=== PATIENT | male | born 1975 | race Caucasian/White ===

== ENCOUNTER 2017-11-28 10:37 | Outpatient (CLI) | payer OTHER ==
[~2017-11-28] VITALS: Ht 155 cm; Wt 114.5 kg
[2017-11-28 11:03] LABS: HEMATOCRIT 43.4 % (42.0-52.0); HEMOGLOBIN 14.5 g/dl (13.5-18.0); MEAN CELL VOLUME 94 fl (80.0-100.0); MEAN CORPUSCULAR HEMOGLOBIN 32 pg (27.0-31.0); MEAN CORPUSCULAR HGB CONC 33 g/dl (33.0-37.0); MEAN PLATELET VOLUME 9.4 fl (7.4-10.4); PLATELET COUNT 289 K/mm3 (130-400); REDCELL DISTRIBUTION WIDTH-CV 12.4 % (11.5-14.5)
[2017-11-28 11:08] VITALS: BP 121/74; PULSE 61
[2017-11-28 11:09] VITALS: BP 121/74; PULSE 61; TEMP 97
[2017-11-28 11:11] LABS: PROTHROMBIN TIME 11.4 SECONDS (9.7-12.8)
[2017-11-28] MEDS ORDERED: LOPRESSOR 550 MG/TAB PO (11:13)
[2017-11-28] MEDS ORDERED: CELEXA40 MG PO (11:14)
[2017-11-28] MEDS ORDERED: BUSPAR10 MG PO (11:14)
[2017-11-28] MEDS ORDERED: ASPIRIN 32325 MG/TAB PO (11:15)
[2017-11-28] MEDS ORDERED: NATURAL POTASS595 MG PO (11:17)
[2017-11-28 13:10] VITALS: BP 123/70; PULSE 52
== END 2017-11-28 13:16 | disposition home or self-care (01) ==
LOC: COL.CAR 10:37
PROVIDERS: Internal Medicine Interventional Cardiology
DX: R00.2 Palpitations (principal); F41.8 Other specified anxiety disorders; I48.0 Paroxysmal atrial fibrillation; F17.210 Nicotine dependence, cigarettes, uncomplicated; Z79.82 Long term (current) use of aspirin; Z83.3 Family history of diabetes mellitus; Z82.49 Family history of ischemic heart disease and other diseases of the circulatory system; Z80.9 Family history of malignant neoplasm, unspecified

== ENCOUNTER 2020-03-13 12:01 | Day surgery (SDC) | payer BC ==
[~2020-03-13] VITALS: Ht 180.3 cm; Wt 113.4 kg
[~2020-03-13 12:01] MED LIST: ASPIRIN 32325 MG/TAB PO; BUSPAR10 MG PO; CELEXA40 MG PO; LOPRESSOR 550 MG/TAB PO; NATURAL POTASS595 MG PO
[2020-03-13] MEDS ORDERED: NORCO 325 MG-51 TAB PO (12:43)
[2020-03-13] MEDS ORDERED: MOTRIN 600600 MG/TAB PO (12:43)
[2020-03-13 12:51] VITALS: BP 122/73; PULSE 55; TEMP 98.5
[2020-03-13] MEDS ORDERED: TAMBOCOR150 MG PO (13:14)
[2020-03-13 15:23] VITALS: BP 132/66; PULSE 60
--- NOTE | 2020-03-13 15:23 | NUR ---
PATIENT TRANSPORTED TO BAY 2 ACCOMPANIED BY OR STAFF. PATIENT AWAKE AND TALKING WITH STAFF. MONITORS REAPPLIED. PATIENT ON ROOM AIR. VERBAL REPORT RECEIVED.
[2020-03-13 15:30] VITALS: BP 120/83; PULSE 59; TEMP 97.4
--- NOTE | 2020-03-13 15:40 | NUR ---
VSS ON ROOM AIR. PATIENT VIDEO TALKING ON PHONE WITH FAMILY. PATIENT STATES ABD DISCOMFORT. RATES DISCOMFORT 3/10, STATES MORE SORE. PATIENT GIVEN SPRITE AND MUFFIN. EATING AND DRINKING WITHOUT PROBLEMS.
[2020-03-13 15:45] VITALS: BP 125/51; PULSE 55
--- NOTE | 2020-03-13 15:50 | NUR ---
VSS ON ROOM AIR. PATIENT GIVEN NORCO 1 TAB ORDERED FOR DISCOMFORT. PATIENT VIDEO TALKING ON PHONE WITH FAMILY. PATIENT DENIES NAUSEA.
[2020-03-13 16:00] VITALS: BP 110/61; PULSE 51
--- NOTE | 2020-03-13 16:05 | NUR ---
VSS ON ROOM AIR. PATIENT DENIES NAUSEA. PATIENT STATES CONTINUED SORE. PATIENT STATES SHE IS READY TO GO HOME AND FAMILY IS ON THEIR WAY HERE. 1610 IV SITE REMOVED WITH CATHETER TIP INTACT. PRESSURE AND BANDAGE APPLIED. 1615 DISCHARGE INSTRUCTIONS GIVEN VERBAL AND DISCHARGE PACKET PROVIDED WITH FOLLOWUP APPOINTMENT GIVEN. [facility]. QUESTIONS ANSWERED AND PATIENT VOICED UNDERSTANDING. PATIENT CHANGES INTO STREET CLOTHES. 1626 PATIENT DICHARGED PER WHEEL CHAIR ACCOMPANIED BY AMB RN TO PRIVATE VECHILE DRIVEN BY FAMILY MEMBER.
== END 2020-03-13 16:26 | disposition home or self-care (01) ==
LOC: SDCO 12:01 → EDSEX 14:00 → SDCO 16:26
DX: K42.9 Umbilical hernia without obstruction or gangrene (principal); Z79.82 Long term (current) use of aspirin; Z90.49 Acquired absence of other specified parts of digestive tract; I48.91 Unspecified atrial fibrillation; F32.9 Major depressive disorder, single episode, unspecified; F41.9 Anxiety disorder, unspecified; F17.210 Nicotine dependence, cigarettes, uncomplicated; E66.9 Obesity, unspecified; I10 Essential (primary) hypertension
CPT/HCPCS: C1781; J0690; J1100; J1885; J2704; J3010; J7120

== ENCOUNTER 2023-01-28 13:21 | Inpatient (IN) | payer OTHER ==
[~2023-01-28] VITALS: Ht 152.4 cm; Wt 108.4 kg
[~2023-01-28 13:21] MED LIST changes: +MOTRIN 600600 MG/TAB PO; +NORCO 325 MG-51 TAB PO; +TAMBOCOR150 MG PO
--- NOTE | 2023-01-28 13:45 | NUR ---
1200-ROSIO BROWN, FROM [facility] REQUESTING TRANSFER FOR PATIENT WITH DIVERTICULITIS WITH MICROPERF BUT NO ABCESS. CALL TRANSFERRED TO DR. JAMES WHO STATED HE WILL CONSULT ON PATIENT BUT WOULD LIKE HOSPITALIST TO ADMIT D/T PATIENT HX OF AFIB. CALL THEN TRANSFERRED TO DR. OLMEDO WHO ACCEPTS PATIENT FOR ADMISSION FOR INPATIENT STATUS 1230-[facility] NOTIFIED OF BED AND STATED THAT PATIENT WILL COME VIA EMS
[2023-01-28 14:00] VITALS: BP_SYST 123
[2023-01-28 15:43] VITALS: BP 123/66; PULSE 90; TEMP 98.9
[2023-01-28] MEDS ORDERED: COLACE 100100 MG/CAP PO (15:45)
[2023-01-28] MEDS ORDERED: NATURAL POTASS595 MG PO (15:46)
[2023-01-28 16:12] VITALS: BP_SYST 123
--- NOTE | 2023-01-28 16:29 | NUR ---
Patient admitted to room 328. Report from [facility]. Med list updated with medication bottles patient brought from home. Her daughter at her side. Doctors to see her, they are made aware her her arrival
--- NOTE | 2023-01-28 18:26 | NUR ---
Patient attempted clear liquids and had nausea & increased pain. Zofran & morphine has ordered. Encouraged her to take it very slow with intake. Medications relieved discomfort. IVF as ordered and antibioitcs. Her supportive daughter at bedside. Will report off to nightnurse
[2023-01-28 19:30] VITALS: BP_SYST 92
--- NOTE | 2023-01-28 19:30 | NUR ---
PT HAVING ABD PAIN. VERY ANXIOUS. SEE MAR FOR MS AND BUSPAR GIVEN.
[2023-01-28 20:00] VITALS: BP 128/58; PULSE 64; TEMP 98.9
[2023-01-29] VITALS (13 sets, daily range): BP systolic 92–133; BP diastolic 58–73; PULSE 51–72; TEMP 97.3–99.3
--- NOTE | 2023-01-29 00:40 | NUR ---
PT UP TO BR W/ ASSIST. VOIDED W/O DIFFICULTY. C/O COOK/ NAUSEA. BACK TO BED. SEE VS. ZOFRAN GIVEN.
--- NOTE | 2023-01-29 00:41 | NUR ---
FOUND A VAPE IN BED WITH PT. RELATED NOT ALLOWED. GIVEN TO PT'S DAUGHTER.
--- NOTE | 2023-01-29 00:42 | NUR ---
PT RESTING NOW. NO DISTRESS.
--- NOTE | 2023-01-29 01:06 | NUR ---
NAUSEA IMPROVED. TOOK TYLENOL FOR HEAD ACHE
[2023-01-29 07:17] LABS: BASO % 0.4 % (0.0-2.0); EOS # 0.2 K/mm3 (0.0-0.7); EOS % 1.5 % (0.0-4.0); GRAN # 7.3 K/mm3 (1.4-6.5); HEMOGLOBIN 10.6 g/dl (12.5-16.0); LYMPH # 1.7 K/mm3 (1.2-3.4); LYMPH % 17.4 % (20.0-51.0); MEAN CELL VOLUME 96 fl (80.0-100.0); MEAN CORPUSCULAR HEMOGLOBIN 32 pg (27-31); MEAN CORPUSCULAR HGB CONC 34 g/dl (33.0-37.0); MEAN PLATELET VOLUME 9.9 fl (7.4-10.4); MONO # 0.7 K/mm3 (0.1-0.6); MONO % 7.2 % (1.7-9.3); PLATELET COUNT 190 K/mm3 (130-400); RED BLOOD COUNT 3.28 M/mm3 (4.10-5.30); REDCELL DISTRIBUTION WIDTH-CV 12.9 % (11.5-14.5)
[2023-01-29 07:21] LABS: HEMATOCRIT 31.4 % (37.0-47.0)
[2023-01-29 07:39] LABS: ALBUMIN 2.9 gm/dL (3.5-5.0); BILIRUBIN,TOTAL 0.8 mg/dL (0.2-1.2); CALCIUM 8.3 mg/dL (8.4-10.2); CREATININE, serum 0.81 mg/dL (0.57-1.11); MAGNESIUM 1.8 mg/dL (1.6-2.6); POTASSIUM 3.6 mmol/L (3.5-4.5)
--- NOTE | 2023-01-29 09:28 | NUR ---
PT SITTING IN CHAIR, ALERT AND ORIENTEDX4. PT RATED PAIN 8/10 THIS BEFORE GIVING MORPHINE AND 4/10 AFTER THE MORPHINE IN THE ABDOMEN. PT ALSO COMPLAINED OF HEADACHE. THIS NURSE GAVE HER TYLENOL. ASSESSED AND GAVE MORNING MEDS. CALL LIGHT WITHIN REACH.
--- NOTE | 2023-01-29 13:32 | NUR ---
SW met with patient to complete intake; Patient reports that she resides in [place] and her PCP is Dr Murillo and pharmacy of choice is also located in [place] called [facility]. Patient MARCELO is daughter Aldo Han [phone]. Currently no DPOA. Patient also confirmed that she currently does not utilize any DME's and independent with ADL's. Patient is excepting to discharge back to her home, pending any further medical recommendations.
--- NOTE | 2023-01-29 17:52 | NUR ---
RECIEVED REPORT FROM BRENT MATTHEWS AND ASSUMED CARE FOR THIS PATIENT AROUND 1500. PT ALERT AND ORIENTED. VSS. CALLED OUT WITH REQUEST FOR PAIN MED WITH C/O ABDOMINAL PAIN RATED 10/10. IV MORPHINE GIVEN. WHEN I CHECKED BACK IN AN HOUR PT STATED IT TOOK THE EDGE OFF AND PAIN NOW RATED 2/10. MEDICATED FOR NAUSEA PER EMAR. PT IS ON CLEARS AND IS TOLERATING WELL. DID HAVE ONE INCONTINENT LIQUID STOOL. NS RUNNING AT 75ML/HR TO PERIPHERAL IV IN R AC. CALL LIGHT WITHIN REACH. PT AMBULATES INDEPENDANTLY.DENIES FURTHER NEEDS AT THIS TIME.
--- NOTE | 2023-01-29 20:00 | NUR ---
PT WEEPING AND VERY ANXIOUS. PT C/O UNCONTROLLED ABD PAIN TODAY. NAUSEA BETTER SINCE ANGIE EARLIER. SEE MAR FOR MS. SEE MAR FOR DONNAPAR GIVEN. CALL LIGHT IN REACH.
--- NOTE | 2023-01-29 21:00 | NUR ---
PT AMBULATING IN [place] WITH CLINICAL PHARMACOLOGIST. STILL HAVING ABD PAIN BUT IMPROVED SOME. BACK TO BED.
[2023-01-30] VITALS (11 sets, daily range): BP systolic 96–128; BP diastolic 63–79; PULSE 51–58; TEMP 98.1–98.4
[2023-01-30 06:57] LABS: BASO % 0.3 % (0.0-2.0); EOS # 0.2 K/mm3 (0.0-0.7); EOS % 2.2 % (0.0-4.0); GRAN # 5.2 K/mm3 (1.4-6.5); GRAN % 66.8 % (42.2-75.2); HEMOGLOBIN 10.4 g/dl (12.5-16.0); LYMPH # 1.8 K/mm3 (1.2-3.4); LYMPH % 23.2 % (20.0-51.0); MEAN CELL VOLUME 97 fl (80.0-100.0); MEAN CORPUSCULAR HEMOGLOBIN 32 pg (27-31); MEAN CORPUSCULAR HGB CONC 33 g/dl (33.0-37.0); MEAN PLATELET VOLUME 9.9 fl (7.4-10.4); MONO # 0.6 K/mm3 (0.1-0.6); MONO % 7.1 % (1.7-9.3); PLATELET COUNT 161 K/mm3 (130-400); RED BLOOD COUNT 3.25 M/mm3 (4.10-5.30); REDCELL DISTRIBUTION WIDTH-CV 12.9 % (11.5-14.5)
[2023-01-30 06:59] LABS: HEMATOCRIT 31.6 % (37.0-47.0)
[2023-01-30 07:11] LABS: ALBUMIN 2.8 gm/dL (3.5-5.0); BILIRUBIN,TOTAL 0.7 mg/dL (0.2-1.2); CALCIUM 8.3 mg/dL (8.4-10.2); CREATININE, serum 0.7 mg/dL (0.57-1.11); MAGNESIUM 1.8 mg/dL (1.6-2.6); POTASSIUM 3.4 mmol/L (3.5-4.5); TOTAL PROTEIN 6.1 gm/dL (6.2-8.1)
[2023-01-30 07:56] LABS: PH 6.5 (5.0-8.5); URINE APPEARANCE Clear (CLEAR/HAZY); URINE BACTERIA Rare /hpf (NONE SEEN); URINE BLOOD TRACE-INTACT (NEGATIVE); URINE COLOR Yellow (YELLOW); URINE GLUCOSE Negative (NEGATIVE); URINE KETONE Negative (NEGATIVE); URINE NITRATE Negative (NEGATIVE); URINE PROTEIN(semi-quant) Negative (NEGATIVE); URINE RBC 0-2 /hpf (0-2)
[2023-01-30 07:57] LABS: COLLECTION METHOD CLEAN CATCH
--- NOTE | 2023-01-30 09:26 | NUR ---
Initial visit; Patient thanked Pathology Tech for looking in on her and offering prayer and God's blessings. Pathology Tech was able to visit with Martha and wished her well.
--- NOTE | 2023-01-30 10:03 | NUR ---
PT RESTING IN BED WITH PAIN 5/10 IN ABDOMEN. PAIN MEDICATION PROVIDED PER EMAR. PT COMPLAINING OF LOOSE BOWEL MOVMEMENTS. PT UP TO BATHROOM INDEPENDENT STEADY GAIT. WILL CONTINUE TO MONITOR.
--- NOTE | 2023-01-30 18:00 | NUR ---
PT UP TO FLOOR AT THIS TIME. PT A/OX4, DROWSY, NO PAIN, LAP SITES X5 TO ABDOMEN CLEAN, DRY, AND INTACT. PT TOLERATING ICE CHIPS WELL. VITALS STABLE, WILL CONTINUE TO MONITOR.
--- NOTE | 2023-01-30 18:45 | NUR ---
PATIENT RESTING IN BED WITH TV ON WITH NO ACUTE DISTRESS NOTED. PATIENT ON ROOM AIR. NS INFUSING INTO LEFT AC WITH NO COMPLICATIONS NOTED. BEDSIDE SHIFT REPORT COMPLETED. PATIENT DENIES ANY NEEDS AT THIS TIME. BED IN LOW POSITION WITH WHEELS LOCKED WITH RAILS UP X2 AND CALL LIGHT WITHIN REACH.
--- NOTE | 2023-01-30 21:35 | NUR ---
PATIENT RESTING WITH EYES CLOSED IN THE APPEARANCE OF SLEEP LAYING ON HER LEFT SIDE WITH NO ACUTE DISTRESS NOTED. PATIENT ON ROOM AIR. ASSESSMENT AND MEDICATION ADMINISTRATION COMPLETED AT THIS TIME. PATIENT TOLERATED WELL. PATIENT C/O PAIN AND PRN MEDICATION GIVEN PER MD ORDER. PATIENT REQUESTED APPLE JUICE AND CUP OF ICE WITH 2 CONTAINER OF APPLE JUICE GIVEN. ALL NEEDS MET. BED IN LOW POSITION WITH WHEELS LOCKED WITH RAILS UP X2 AND CALL LIGHT WITHIN REACH.
[2023-01-31] VITALS (8 sets, daily range): BP systolic 96–154; BP diastolic 68–81; PULSE 53–57; TEMP 97.9–98.2
--- NOTE | 2023-01-31 06:30 | NUR ---
PATIENT RESTED AT INTERVALS. PATIENT TOLERATING LOW FIBER DIET. PATIENT HAD NORCO ONCE WITH PAIN RELIEF. NS INFUSING INTO LEFT AC WITH NO COMPLICATIONS NOTED. ALL NEEDS MET. BED IN LOW POSITION WTIH WHEELS LOCKED WITH RAILS UP X2 AND CALL LIGHT WITHIN REACH.
--- NOTE | 2023-01-31 08:00 | NUR ---
PATIENT SITTING UP IN BED WITH BREAKFAST TRAY TRYING TO EAT A FEW BITES. PATIENT C/O NAUSEA, GAVE PRN IV ZOFRAN. PATIENT DECIDED TO HOLD OFF ON ORAL PAIN MEDS TILL NAUSEA IMPROVES. CURRENTLY ON A LOW FIBER DIET. IV FLUIDS INFUSING VIA PUMP INTO LEFT AC IV. VSS ON TELE. PATIENT REPORTS FLATUS AND LOOSE STOOLS, LIKELY FROM THE IV ABX. IV ZOSYN INFUSING VIA PUMP NOW. HEAD TO TOE ASSESSMENT COMPLETE. NO OTHER NEEDS AT THIS TIME. CALL LIGHT IN REACH.
[2023-01-31 08:21] LABS: CALCIUM 8.9 mg/dL (8.4-10.2); CREATININE, serum 0.79 mg/dL (0.57-1.11); POTASSIUM 3.8 mmol/L (3.5-4.5)
[2023-01-31 08:52] LABS: BASO % 0.5 % (0.0-2.0); EOS # 0.2 K/mm3 (0.0-0.7); EOS % 2.7 % (0.0-4.0); GRAN # 4.4 K/mm3 (1.4-6.5); GRAN % 66.9 % (42.2-75.2); HEMOGLOBIN 12.1 g/dl (12.5-16.0); LYMPH # 1.5 K/mm3 (1.2-3.4); LYMPH % 22.5 % (20.0-51.0); MEAN CELL VOLUME 96 fl (80.0-100.0); MEAN CORPUSCULAR HEMOGLOBIN 32 pg (27-31); MEAN CORPUSCULAR HGB CONC 34 g/dl (33.0-37.0); MEAN PLATELET VOLUME 10.7 fl (7.4-10.4); MONO # 0.5 K/mm3 (0.1-0.6); MONO % 7.1 % (1.7-9.3); PLATELET COUNT 205 K/mm3 (130-400); RED BLOOD COUNT 3.75 M/mm3 (4.10-5.30); REDCELL DISTRIBUTION WIDTH-CV 12.6 % (11.5-14.5)
[2023-01-31] MEDS ORDERED: AMOXICILLIN 8751 TAB PO (11:25)
[2023-01-31] MEDS ORDERED: ZOFRAN ODT4 MG PO (11:26)
--- NOTE | 2023-01-31 13:30 | NUR ---
PATIENT DISCHARGING HOME VIA AMBULATORY WITH PCT TO PERSONAL VEHICLE WITH FAMILY. GAVE DISCHARGE INSTRUCTIONS, E-SCRIPTS SENT, AND DISCUSSED F/U APT. ANSWERED QUESTIONS/CONCERNS. PATIENT IS DRESSED, PACKED AND ESCORTED OUT. TELE DC'D. IV DC'D AND COVERED WITH COBAN.
== END 2023-01-31 13:30 | disposition home or self-care (01) | DRG 392 ==
LOC: SURG 13:21
PROVIDERS: Physician Assistant; ADMIT Hospitalist
DX: K57.20 Diverticulitis of large intestine with perforation and abscess without bleeding (principal); Z68.42 Body mass index [BMI] 45.0-49.9, adult; E66.01 Morbid (severe) obesity due to excess calories; F17.210 Nicotine dependence, cigarettes, uncomplicated; L73.2 Hidradenitis suppurativa; F32.A Depression, unspecified; F41.9 Anxiety disorder, unspecified; I95.9 Hypotension, unspecified; E87.6 Hypokalemia; E88.810 Metabolic syndrome; I48.91 Unspecified atrial fibrillation; Z90.49 Acquired absence of other specified parts of digestive tract; Z98.51 Tubal ligation status; Z95.818 Presence of other cardiac implants and grafts; Z79.82 Long term (current) use of aspirin; Z79.899 Other long term (current) drug therapy; Z23 Encounter for immunization
CPT/HCPCS: J1650; J2270; J2405; J2543; J3480; J7030